=== PATIENT | female | born 1960 | race Native Hawaiian/Other Pacific Islander ===

== ENCOUNTER 2016-06-30 13:12 | Outpatient (CLI) | payer OTHER | END 2016-06-30 13:13 | disposition home or self-care (01) | DX: Z12.31 Encounter for screening mammogram for malignant neoplasm of breast (principal) ==

== ENCOUNTER 2016-12-22 15:56 | Outpatient (CLI) | payer OTHER ==
--- NOTE | 2016-12-23 12:30 | XRAY Report ---
THREE-VIEW RIGHT SHOULDER: 12/22/2016 CLINICAL INDICATION: Pain, restricted range of motion. FINDINGS: Internal and external rotational views and a scapular Y view of the right shoulder demonst rate degenerative changes of the acromioclavicular joint. There is no evidence of fracture or disloc ation. No radiopaque foreign body is seen in the soft tissues. IMPRESSION: AC JOINT DEGENERATIVE DISEASE. JOB #: [id number] EXT JOB #:[id number]
== END 2016-12-22 15:57 | disposition home or self-care (01) ==
LOC: DI 15:56
PROVIDERS: ATTEND Family Medicine
DX: M19.011 Primary osteoarthritis, right shoulder (principal)

== ENCOUNTER 2018-08-19 08:06 | Outpatient (CLI) | payer OTHER ==
--- NOTE | 2018-08-19 08:53 | Mammography Report ---
Reason: SCREENING MAMMO Procedure Date: 08/19/2018 Accession Number: [id number] / [id number] Procedure: TENZIN - Screening Mammo w/Mook CPT Code: FULL RESULT: EXAM: Screening Mammo w/Mook DATE: 08/19/2018 8:47 AM CLINICAL HISTORY: Screening encounter. No reported risk factors. TECHNIQUE: (B) - Bilateral CC and MLO views were obtained. A right laterally exaggerated CC views obtained. COMPARISON: 06/30/2016 through 01/24/2011. PARENCHYMAL PATTERN: (D) - The breast(s) demonstrate(s) heterogeneously dense fibroglandular parenchyma. FINDINGS: There are no suspicious masses, calcifications, or areas of distortion. IMPRESSION: Negative examination. BI-RADS category 1. RECOMMENDATION: (ANNUAL) - Recommend routine annual screening mammography. BI-RADS CATEGORY: (1) - Negative. STANDARD QUALIFYING STATEMENTS: 1. This examination was not reviewed with the aid of Computer-Aided Detection (CAD). 2. A negative or benign imaging report should not preclude biopsy if clinically suspicious findings are present. 3. Dense breasts may obscure an underlying neoplasm. 4. This examination was reviewed with the aid of 3D breast imaging (tomosynthesis).
== END 2018-08-19 08:07 | disposition home or self-care (01) ==
LOC: DI 08:06
DX: Z12.31 Encounter for screening mammogram for malignant neoplasm of breast (principal)
CPT/HCPCS: 77063; 77067

== ENCOUNTER 2019-12-18 08:57 | Outpatient (CLI) | payer OTHER ==
--- NOTE | 2019-12-20 14:08 | Mammography Report ---
BILATERAL DIGITAL SCREENING MAMMOGRAM 3D/2D: 12/18/2019 CLINICAL: Routine screening. Comparison is made to exams dated: 08/19/2018 mammogram, 06/30/2016 mammogram, 11/01/2014 mammogram, 09/15 mammogram, and 01/24/2011 mammogram - [facility]. The tissue of both breasts is heterogeneously dense. This may lower the sensitivity of mammography. No significant masses, calcifications, or other findings are seen in either breast. There has been no significant interval change. IMPRESSION: NEGATIVE There is no mammographic evidence of malignancy. A 1 year screening mammogram is recommended. This exam was interpreted at Station ID: [id number]. NOTE: For mammograms, a report in lay terms will be sent to the patient. Approximately 15% of breast malignancies will not be visualized mammographically. In the management of a palpable breast mass, a negative mammogram must not discourage biopsy of a clinically suspicious lesion. Electronically Signed By: Natalia hankins/sofía:12/20/2019 08:10:44 ACR BI-RADS Category 1: Negative 3341F PARENCHYMAL PATTERN: (D) - The breast(s) demonstrate(s) heterogeneously dense fibroglandular suzanne espinal. BI-RADS CATEGORY: (1) - 1 RECOMMENDATION: (ANNUAL) - Recommend routine annual screening mammography. [id number] 1 year screening LATERALITY: (B)
== END 2019-12-18 08:58 | disposition home or self-care (01) ==
LOC: DI 08:57
PROVIDERS: ATTEND Physician Assistant Medical
DX: Z12.31 Encounter for screening mammogram for malignant neoplasm of breast (principal)
CPT/HCPCS: 77063; 77067

== ENCOUNTER 2021-03-29 08:20 | Outpatient (CLI) | payer OTHER ==
[2021-03-29 12:25] LABS: BASOPHILS % (AUTO) 0.6 %; EOSINOPHILS # (AUTO) 0.3 10^3/uL (0.0-0.7); EOSINOPHILS % (AUTO) 4.1 %; HCT - HEMATOCRIT 43.3 % (37.0-47.0); HGB - HEMOGLOBIN 14.2 g/dL (12.0-16.0); LYMPHOCYTES # (AUTO) 2.2 10^3/uL (1.5-3.5); LYMPHOCYTES % (AUTO) 32.5 %; MEAN CORPUSCULAR HEMOGLOBIN 29.7 pg (27.0-31.0); MEAN CORPUSCULAR HGB CONC 32.8 g/dL (32.0-36.0); MEAN CORPUSCULAR VOLUME 90.6 fL (81.0-99.0); MEAN PLATELET VOLUME 10.9 fL (7.9-10.8); MONOCYTES # (AUTO) 0.4 10^3/uL (0.0-1.0); MONOCYTES % (AUTO) 6.2 %; NEUTROPHILS # (AUTO) 3.9 10^3/uL (1.5-6.6); NEUTROPHILS % (AUTO) 56.3 %; PLT - PLATELET COUNT 316 10^3/uL (130-450); RED BLOOD COUNT 4.78 10^6/uL (4.20-5.40); WHITE BLOOD COUNT 6.9 x10^3/uL (4.8-10.8)
[2021-03-29 12:53] LABS: ALBUMIN 4.5 g/dL (3.2-5.5); ALBUMIN/GLOBULIN RATIO 1.6 (1.0-2.2); ALKALINE PHOSPHATASE 82 IU/L (42-121); ALT ALANINE AMINOTRANSFERASE 37 IU/L (10-60); AST ASPARTATE AMINOTRANSFERASE 26 IU/L (10-42); BILIRUBIN,TOTAL 0.9 mg/dL (0.2-1.0); BUN - BLOOD UREA NITROGEN 19 mg/dL (6-20); CALCIUM 9.4 mg/dL (8.5-10.3); CARBON DIOXIDE - CO2 29 mmol/L (21-32); CHLORIDE 100 mmol/L (101-111); CHOL/HDL RATIO 5.9 (<4.4); CHOLESTEROL 252 mg/dL; CREATININE 0.7 mg/dL (0.4-1.0); GFR - MDRD 86 (>89); GLUCOSE 103 mg/dL (70-100); HDL CHOLESTEROL 43 mg/dL; LDL CHOLESTEROL,CALCULATED 160 mg/dL; LDL/HDL RATIO 3.7 (<4.4); POTASSIUM 4.3 mmol/L (3.5-5.0); SODIUM 138 mmol/L (135-145); TOTAL PROTEIN 7.3 g/dL (6.7-8.2); TRIGLYCERIDES 245 mg/dL; VLDL CHOLESTEROL 49 mg/dL
[2021-03-29 12:59] LABS: THYROID STIMULATING HORMONE 5.97 uIU/mL (0.34-5.60)
[2021-03-29 14:14] LABS: FREE T4 (FREE THYROXINE) 0.89 ng/dL (0.58-1.64)
== END 2021-03-29 08:21 | disposition home or self-care (01) ==
LOC: LAB.N 08:20
PROVIDERS: ATTEND Registered Nurse
DX: Z13.228 Encounter for screening for other metabolic disorders (principal); Z83.3 Family history of diabetes mellitus
CPT/HCPCS: 36415; 80053; 80061; 83721; 84439; 84443; 85025

== ENCOUNTER 2021-03-29 08:25 | Outpatient (CLI) | payer OTHER ==
--- NOTE | 2021-03-29 09:32 | XRAY Report ---
PROCEDURE: Hand 2 View RT INDICATIONS: RIGHT FINGER PAIN TECHNIQUE: 2 views of the hand(s) acquired. COMPARISON: None FINDINGS: Bones: Avulsion fracture involving the medial margin of the base of the fourth distal phalange. Soft tissues: No suspicious soft tissue calcifications. IMPRESSION: Fourth distal phalange fracture. Reviewed by: Claudia Dorado MD, PhD on 03/29/2021 9:30 AM PST Approved by: Claudia Dorado MD, PhD on 03/29/2021 9:30 AM [facility] Station ID: [id number]
== END 2021-03-29 08:26 | disposition home or self-care (01) ==
LOC: DI.N 08:25
PROVIDERS: ATTEND Registered Nurse
DX: S62.634A Displaced fracture of distal phalanx of right ring finger, initial encounter for closed fracture (principal); Z83.3 Family history of diabetes mellitus; Z13.228 Encounter for screening for other metabolic disorders
CPT/HCPCS: 36415; 80053; 80061; 83721; 84439; 84443; 85025

== ENCOUNTER 2021-04-08 12:31 | Outpatient (CLI) | payer OTHER ==
--- NOTE | 2021-04-08 13:12 | DEXA Report ---
PROCEDURE: Dexa Spine and/or Hip INDICATIONS: POST MENOPAUSAL TECHNIQUE: Dual energy x-ray absorptiometry (DXA) was performed on a [employer] System. Regions measur ed are the AP Spine, femoral neck, and if needed forearm. COMPARISON: None. FINDINGS: Lumbar Spine: Bone Mineral Density 1.21 g/cm/cm,T score 0.3, normal Left Femoral Neck: Bone Mineral Density 0.912 g/cm/cm, T score -0.9, normal (T score greater or equal to -1.0: NORMAL) (T score from -1.1 to -2.4: OSTEOPENIA) (T score less than or equal to -2.5 to: OSTEOPOROSIS) Impression: Bone mineral density as detailed above. Patients with diagnosis of osteoporosis or osteopenia should have regular bone mineral density assess ment. For those eligible for Medicare, routine testing is allowed once every 2 years. Testing frequ ency can be increased for patients who have rapidly progressing disease or for those who are receivin g medical therapy to restore bone mass. Reviewed by: Antoni Gates MD on 04/08/2021 1:10 PM PST Approved by: Antoni Gates MD on 04/08/2021 1:10 PM PST Station ID: [id number]
== END 2021-04-08 12:32 | disposition home or self-care (01) ==
LOC: DI 12:31
PROVIDERS: ATTEND Registered Nurse
DX: Z78.0 Asymptomatic menopausal state (principal)

== ENCOUNTER 2021-04-16 11:34 | Outpatient (CLI) | payer OTHER ==
--- NOTE | 2021-04-16 17:00 | XRAY Report ---
PROCEDURE: Hand 3 View RT INDICATIONS: R FINGER PX TECHNIQUE: 3 views of the hand(s) acquired. COMPARISON: 03/29/2021 FINDINGS: Bones: Again noted is minimally displaced intra-articular fracture involving radial aspect of fourth distal phalangeal base. No new fracture or dislocation is seen. Alignment of finger is anatomic. No s uspicious bony lesions. Soft tissues: No suspicious soft tissue calcifications. IMPRESSION: Stable appearing minimally displaced intra-articular fracture involving radial aspect of fourth dista l phalangeal base. No new fracture or dislocation. Reviewed by: Maynor Trotter MD on 04/16/2021 4:58 PM PST Approved by: Maynor Trotter MD on 04/16/2021 4:58 PM PST Station ID: [id number]
== END 2021-04-16 23:59 | disposition home or self-care (01) ==
LOC: DI.N 11:34
PROVIDERS: ATTEND Family Medicine
DX: S62.634A Displaced fracture of distal phalanx of right ring finger, initial encounter for closed fracture (principal)

== ENCOUNTER 2021-04-29 13:39 | Outpatient (CLI) | payer OTHER ==
--- NOTE | 2021-04-29 12:10 | XRAY Report ---
PROCEDURE: Finger(s) RT INDICATIONS: F/U RT RING FX FX TECHNIQUE: AP hand, 2 views of the fourth finger(s) acquired. COMPARISON: April 16, 2021 FINDINGS: BONES: Increase sclerosis about the radial aspect fourth distal phalanx base, compatible with ongoing healing. SOFT TISSUES: No focal abnormality. IMPRESSION: 1.Ongoing healing of the patient's fourth distal phalanx base fracture. Reviewed by: Antoni Gates MD on 04/29/2021 12:08 PM [facility] Approved by: Antoni Gates MD on 04/29/2021 12:08 PM [facility] Station ID: [id number]
== END 2021-04-29 13:40 | disposition home or self-care (01) ==
LOC: DI.WOS 13:39
PROVIDERS: ATTEND Orthopaedic Surgery
DX: S62.634D Displaced fracture of distal phalanx of right ring finger, subsequent encounter for fracture with routine healing (principal)

== ENCOUNTER 2022-08-07 20:01 | Emergency (ER) | payer OTHER ==
[2022-08-07 20:08] VITALS: BP 184/72
[2022-08-07] MEDS ORDERED: TETANUS/DIPHTHERIA/PERTUSSIS 0.5 ML SYRINGE IM ONE (20:15)
[2022-08-07] MEDS ORDERED: HYDROcod/ACETAM 5/325 MG TABLET PO STA (20:15)
[2022-08-07] MEDS ORDERED: HYDROcod/ACET 5/325 Prepack 4 PO STA (20:15)
--- NOTE | 2022-08-07 20:18 | ED Physician Documentation ---
PD HPI UPPER EXT INJURY - Stated complaint Stated Complaint: LT FINGER INJ - Chief complaint Chief Complaint: Trauma Ext - History obtained from History obtained from: Patient (Right-handed woman with unknown tetanus status was working in the yard and crushed her left ring finger between 2 rocks with moderate to severe pain. This happened about 4 hours ago. No other injuries.) PD PAST MEDICAL HISTORY - Past Surgical History /[employer]: section - Present Medications Home Medications: Ambulatory Orders Medication Instructions Recorded Confirmed No Known Home Medications 08/07/22 08/07/22 - Allergies Allergies/Adverse Reactions: Allergies Allergy/AdvReac Type Severity Reaction Status Date / Time No Known Drug Allergies Allergy Verified 08/07/22 20:06 PD ED PE NORMAL - Vitals Vital signs reviewed: Yes - General General: Alert and oriented X 3, No acute distress - Extremities Extremities: Other (She is quite tender to the DIP of the left fourth finger. There is a small open area on the palmar side of the DIP not needing suturing. Normal neurovascular function of the tip.) - Neuro Neuro: Alert and oriented X 3, Normal speech - Psych Psych: Normal mood, Normal affect Results - Vitals Vitals: Vital Signs - 24 hr 08/07/22 20:03 Temperature 36 C L Heart Rate 74 Respiratory 16 Rate Blood Pressure 184/72 H O2 Saturation 97 Oxygen O2 Source Room air - Rads (name of study) Three-view x-ray of the left fourth finger is negative for fracture. Relevant Findings:: Final report received, EMP independent interpretation of test PD Medical Decision Making - ED course ED course: She has a left ring finger crush injury. X-rays showing no fracture. There was a small wound which was irrigated and dressed. Tetanus updated. She received 1 hydrocodone here and for pack to go. Departure - Departure Disposition: 01 Home, Self Care Clinical Impression: Crushing injury of left ring finger, initial encounter Condition: Good Instructions: ED Crush Injury Finger No Fx Comments: Elevate, ice, and take ibuprofen per package instructions. Follow-up with your doctor in a week if not better, return if worse. For wound care you can wash with soap and water and then just keep it covered with a Band-Aid. Discharge Date/Time: 08/07/22 21:16
--- NOTE | 2022-08-07 21:23 | XRAY Report ---
PROCEDURE: Finger(s) LT INDICATIONS: Trauma TECHNIQUE: AP hand, 2 additional views of the first digit acquired. COMPARISON: None. FINDINGS: Bones: No fractures or dislocations. No suspicious bony lesions. Soft tissues: No suspicious soft tissue calcifications or masses. IMPRESSION: 1. No fracture or dislocation. Reviewed by: Jarod Alaniz MD on 08/07/2022 9:21 PM PDT Approved by: Jarod Alaniz MD on 08/07/2022 9:21 PM PDT Station ID: [id number]
== END 2022-08-07 21:16 | disposition home or self-care (01) ==
LOC: ED 20:01
DX: S69.92XA Unspecified injury of left wrist, hand and finger(s), initial encounter (principal); W23.0XXA Caught, crushed, jammed, or pinched between moving objects, initial encounter; Z23 Encounter for immunization; Z71.85 Encounter for immunization safety counseling
CPT/HCPCS: 73140; 90471; 90715; 99283; A9270

== ENCOUNTER 2022-12-29 12:55 | Outpatient (CLI) | payer OTHER ==
--- NOTE | 2022-12-30 09:30 | Mammography Report ---
BILATERAL DIGITAL SCREENING MAMMOGRAM 3D/2D: 12/29/2022 CLINICAL: Routine screening. Comparison is made to exams dated: 12/18/2019 mammogram, 08/19/2018 mammogram, 06/30/2016 mammogram, 2012 mammogram, and 11/01/2014 mammogram - [facility]. Both breasts are heterogeneously dense, which may obscure small masses (category c / 51-75% glandular tissue). No significant masses, calcifications, or other findings are seen in either breast. There has been no significant interval change. IMPRESSION: NEGATIVE There is no mammographic evidence of malignancy. A 1 year screening mammogram is recommended. Based on the Tyrer Cuzick model (a risk assessment model) the patients lifetime risk is 7.6% and her 10 year risk is 3.1%. According to the ACR, ACS, and NCCN guidelines, an annual breast MRI exam marky g with mammogram is recommended if the patients lifetime risk is 20% or greater. This exam was interpreted at Station ID: [id number]. NOTE: For mammograms, a report in lay terms will be sent to the patient. Approximately 15% of breast malignancies will not be visualized mammographically. In the management of a palpable breast mass, a negative mammogram must not discourage biopsy of a clinically suspicious lesion. Electronically Signed By: Chelita rg/sofía:12/29/2022 16:35:45 letter sent: No_Letter ACR BI-RADS Category 1: Negative 3341F PARENCHYMAL PATTERN: (D) - The breast(s) demonstrate(s) heterogeneously dense fibroglandular suzanne espinal. BI-RADS CATEGORY: (1) - 1 Mammogram [id number] 1 year screening LATERALITY: (B)
== END 2022-12-29 12:56 | disposition home or self-care (01) ==
LOC: DI 12:55
PROVIDERS: ATTEND Physician Assistant
DX: Z12.31 Encounter for screening mammogram for malignant neoplasm of breast (principal)

== ENCOUNTER 2023-04-09 08:20 | Outpatient (CLI) | payer OTHER ==
--- NOTE | 2023-04-09 08:45 | DEXA Report ---
PROCEDURE: Dexa Spine and/or Hip INDICATIONS: FAN HIST OF OSTEOPOROSIS TECHNIQUE: Dual energy x-ray absorptiometry (DXA) was performed on a [employer] System. Regions measur ed are the AP Spine, femoral neck, and if needed forearm. COMPARISON: 04/08/2021 FINDINGS: Lumbar Spine: Bone Mineral Density 1.181 g/cm/cm,T score 0.0. Since the most recent prior study, there has been a statistically significant decrease in bone mineral density by 2.5 percent. Left Femoral Neck: Bone Mineral Density 0.891 g/cm/cm, T score -1.1. Left Hip: Bone Mineral Density 0.960 g/cm/cm,T score -0.4. There has been no statistically significant change i n bone mineral density since the prior study. (T score greater or equal to -1.0: NORMAL) (T score from -1.1 to -2.4: OSTEOPENIA) (T score less than or equal to -2.5 to: OSTEOPOROSIS) Impression: By WHO criteria, this patient has low bone density (osteopenia). Interval statistical decrease in bone minteral density of the lumbar spine. No statistical interval c hange in bone minteral density of the hip. Patients with diagnosis of osteoporosis or osteopenia should have regular bone mineral density assess ment. For those eligible for Medicare, routine testing is allowed once every 2 years. Testing frequ ency can be increased for patients who have rapidly progressing disease or for those who are receivin g medical therapy to restore bone mass. Reviewed by: Eyal Buenrostro MD on 04/09/2023 8:43 AM PST Approved by: Eyal Buenrostro MD on 04/09/2023 8:43 AM PST Station ID: [id number]
== END 2023-04-09 08:21 | disposition home or self-care (01) ==
LOC: DI 08:20
PROVIDERS: ATTEND Physician Assistant
DX: M85.88 Other specified disorders of bone density and structure, other site (principal)

== ENCOUNTER 2023-04-22 10:22 | Day surgery (SDC) | payer OTHER ==
[2023-04-22] MEDS ORDERED: LACTATED RINGERS 1,000 ML IV ONE (11:00)
--- NOTE | 2023-04-22 12:08 | ANESTHESIA ---
Pre-Anesthesia VS, & Labs - Diagnosis hx of polyps - Procedure colonoscopy Vital Signs: Temp Pulse Resp BP Pulse Ox O2 Flow Rate 36 C L 81 14 171/73 H 100 04/22/23 10:34 04/22/23 10:34 04/22/23 10:34 04/22/23 10:34 04/22/23 10:34 Height: 5 ft 3 in Weight (kg): 60.1 kg Body Mass Index: 23.4 BMI Classification: Normal - NPO >8 hours - Is Patient ?: No Home Medications and Allergies No Known Home Medications 08/07/22 Allergies/Adverse Reactions: Allergies Allergy/AdvReac Type Severity Reaction Status Date / Time No Known Drug Allergies Allergy Verified 08/07/22 20:06 Anes History & Medical History - Anesthetic History Anesthesia Complications: reports: No previous complications Family history of Anesthesia Complications: Denies Family history of Malignant Hyperthermia: Denies - Medical History Cardiovascular: reports: None Pulmonary: reports: None Gastrointestinal: reports: None Urinary: reports: None Musculoskeletal: reports: None Endocrine/Autoimmune: reports: None Skin: reports: None - Surgical History Gynecologic: reports: section Exam General: Alert, Oriented x3, Cooperative Dental: WNL Mouth Openin Fingerbreadth Neck Mobility: Normal Mallampati classification: I Thyromental Distance: 4-6 cm Respiratory: Lungs clear Cardiovascular: Regular rate Plan Anesthesia Type: General, Total IV Consent for Procedure(s) Verified and Reviewed: Yes Code Status: Attempt Resuscitation ASA classification: 2-Mild systemic disease Is this case an emergency?: No
[2023-04-22] MEDS ORDERED: LACTATED RINGERS 500 ML IV ONE (13:03)
[2023-04-22 13:19] VITALS: O2SAT 98
[2023-04-22 13:51] VITALS: BP 111/97
--- NOTE | 2023-04-22 14:03 | ANESTHESIA POST OP EVALUATION ---
Anesthesia Post Eval - Post Anesthesia Eval Vitals: Last Vital Signs Temp 36.0 C L 04/22/23 13:37 Pulse 63 04/22/23 13:37 Resp 14 04/22/23 13:37 BP 111/97 H 04/22/23 13:37 Pulse Ox 98 04/22/23 13:37 O2 Flow Rate CV Function Including HR & BP: Stable Pain Control: Satisfactory Nausea & Vomiting: Negative Mental Status: Baseline Respiratory Status: Airway Patent Hydration Status: Satisfactory Anesthesia Complications: None
== END 2023-04-22 10:23 | disposition home or self-care (01) ==
LOC: SDS 10:22
PROVIDERS: ATTEND Surgery
PROC: 0DBN8ZZ Excision of Sigmoid Colon, Via Natural or Artificial Opening Endoscopic (ICD-10-PCS; principal; 2023-04-22 11:30)
DX: Z12.11 Encounter for screening for malignant neoplasm of colon (principal); D12.5 Benign neoplasm of sigmoid colon; K63.5 Polyp of colon
CPT/HCPCS: 45380; J7120